=== PATIENT | female | born 1990 | race African-American/Black ===

== ENCOUNTER 2023-12-06 19:11 | Emergency (ER) | payer OTHER, SELFPAY ==
--- NOTE | ~2023-12-06 | CT_ITS ---
EXAMINATION: CT ABDOMEN AND PELVIS WITHOUT CONTRAST CLINICAL INFORMATION: Lower abdominal pain COMPARISON: None available. TECHNIQUE: Multidetector volumetric imaging was performed from the superior aspect of the liver through the pubic symphysis. Sagittal and coronal reformatted images were obtained on the technologist's workstation. This CT examination was performed using dose optimization techniques as appropriate, variously including the following: *Automated exposure control *Adjustment of mA and/or kV according to patient size (this includes techniques or standardized protocols for targeted exams where dose is matched to indication/reason for exam; i.e. extremities or head) *Use of iterative reconstruction technique DLP: 414 mGy-cm FINDINGS: LUNG BASES: The visualized lung bases are unremarkable. LIVER, GALLBLADDER, AND BILIARY TREE: Diffuse low-attenuation of the liver is present and is suspicious for hepatic steatosis. Focal hypodensity is present adjacent to the falciform ligament may represent focal fatty infiltration of the liver. The liver is normal in size and capsular contour. Vague dependent hyperdensity is present in the lumen of the gallbladder may represent partial visualization of biliary sludge or possible cholelithiasis. No pericholecystic fluid collections or definitive gallbladder wall thickening. PANCREAS: Unremarkable. SPLEEN: Unremarkable. ADRENAL GLANDS: Unremarkable. KIDNEYS AND URETERS: A single 1 mm calcification is present in the region of the left ureterovesicular junction. This finding may represent a ureteral calculus or a fortuitously positioned pelvic phlebolith. No left-sided hydronephrosis or perinephric inflammatory changes noted. Normal appearance of the kidneys. BLADDER: Unremarkable. GASTROINTESTINAL TRACT: Prominent diffuse submucosal fat within the colon and terminal ileum. Normal appendix. No intestinal dilatation. No free intraperitoneal fluid or gas collections. Normal appearance of the stomach and duodenum. ABDOMINAL WALL: No significant hernia is appreciated. LYMPH NODES: Normal. VASCULAR: Unremarkable. PELVIC VISCERA: Normal appearance of the uterus. The right ovary measures 3.0 cm x 3.0 cm x 2.5 cm. No left adnexal lesions. OSSEOUS STRUCTURES: No suspicious skeletal lesions. CT/CT abdomen pelvis wo IV con IMPRESSION: 1. Single 1 mm calcification in the region of the left ureterovesicular junction. This finding may represent a ureteral calculus or a fortuitously positioned pelvic phlebolith. No left-sided hydronephrosis or perinephric inflammatory changes. No additional urolithiasis. 2. Normal appendix. 3. Prominent diffuse submucosal fat within the colon and terminal ileum. This finding could represent the long-term sequela of inflammatory bowel disease (mural stratification and submucosal fat deposition as a sequela of chronic inflammatory bowel disease). No evidence of active colitis. 4. Hepatic steatosis. 5. Vague dependent hyperdensity within the lumen of the gallbladder which may represent biliary sludge or possible cholelithiasis. No CT evidence of acute cholecystitis. 6. Asymmetric prominence of the right ovary which measures up to 3 cm in maximum diameter, at the upper limits of normal size. If clinical concern is present regarding possible acute ovarian abnormality including ovarian torsion, consider further evaluation with pelvic ultrasonography. 7. Electronically signed by: Shahram Berrios MD 12/07/2023 06:31 AM EDT
[2023-12-06 19:29] VITALS: BP 113/92; PULSE 120; RESP 18; TEMP 36.7; O2SAT 98; BMI 25.8
--- NOTE | 2023-12-06 19:30 | ED.ABDPAIN ---
HPI - Abdominal Pain General Chief Complaint: Abdominal Pain Stated Complaint: abd pain,sore throat vomiting Time Seen by Provider: 12/07/23 04:51 Source: patient Mode of arrival: ambulatory Limitations: no limitations History of Present Illness ED Provider: DR. Pineda HPI narrative: 33-year-old female came in for evaluation of abdominal pain, nausea, vomiting, nonbloody watery diarrhea x1 week. No recent use of antibiotic, no sick contacts, no recent travel, no dysuria, no frequency urination. No history of intra-abdominal surgery. Related Data Previous Rx's ?Medication ?Instructions ?Recorded levofloxacin 500 mg tablet 500 mg PO DAILY #10 tabs 12/07/23 ondansetron 4 mg disintegrating 4 mg PO Q8-12H PRN nausea and 12/07/23 tablet vomiting #7 tabs Allergies Allergy/AdvReac Type Severity Reaction Status Date / Time No Known Allergies Allergy Verified 12/06/23 19:33 Review of Systems Review of Systems All other systems are reviewed and are negative Constitutional: Reports as per HPI and Reports no additional constitutional complaints Eyes: Reports as per HPI and Reports no additional eye complaints Reports system reviewed and no additional complaints, except as documented Cardiovascular: Reports as per HPI and Reports no additional cardiovascular complaints Respiratory: Reports as per HPI and Reports no additional respiratory complaints Gastrointestinal: Reports as per HPI and Reports no additional gastrointestinal complaints Genitourinary: Reports no additional female genitourinary complaints Musculoskeletal: Reports no additional musculoskeletal complaints Skin/Breast: Reports system reviewed and no additional complaints, except as docu Psychiatric: Reports no additional psychiatric complaints Endocrine: Reports no additional endocrine complaints Hematologic/Lymphatic: Reports no additional hematologic/lymphatic complaints Allergic/Immunologic: Reports no additional allergic/immunologic complaints Reports system reviewed and no additional complaints, except as documented and Reports Abnormal speech present [facility] Social History Social History Smoked in Last 30 Days: No Use of substances other than those prescribed or required for medical reasons: No Advance Directives: No Advance Directives Information Provided: Yes Do you have a plan to hurt others: No Plan Patient : No Physical Exam ED Vital Signs: Vital Signs - 24 hr 12/06/23 19:29 12/07/23 03:39 12/07/23 06:19 Temperature 98.1 F 98.6 F 97.4 F Pulse Rate 120 H 79 71 Respiratory Rate 18 16 16 Blood Pressure 113/92 H 133/85 106/70 Pulse Oximetry 98 99 99 Oxygen Delivery Method Room Air Room Air Room Air BMI result Body Mass Index 25.8 Vital signs have been reviewed and appear to be correct. Blood pressure elevated. Heart rate normal. Respiratory rate normal. Temperature normal. Oxygen saturation normal. Appearance: Alert. Oriented X3. No acute distress. Head: Normal external exam. Normocephalic. Atraumatic. No Friend signs noted. No raccoon eyes noted Eyes: PERRLA. EOMI. Conjunctiva and sclera normal. Eyelids normal. ENT: TM's Normal. Pharynx normal. Uvula midline. Moist mucous membranes. No trismus noted. No drooling noted. No muffled voice noted. Neck: Normal inspection. Neck supple. FROM. No adenopathy. Thyroid Normal. No meningeal signs. No neck mass noted. CVS: Normal heart rate and rhythm. Heart sound normal. No murmurs noted. Pulses normal throughout. Respiratory: No respiratory distress. Painless inspiration. Breath sounds normal. No wheezes/rales/rhonchi noted. Chest nontender. No accessory muscle usage noted or decreased air movement noted. Abdomen: Soft , lower abdominal tenderness no rebound tenderness, no guarding. Bowel sounds normal in all 4 quadrants. No distention noted. No organomegaly noted. No visible injury noted. Back: No CVA tenderness. Full range of motion noted. Skin: Skin warm and dry. Normal skin color. Normal skin turgor. No rashes/lesions/lacerations noted. Extremities: No lower extremity edema. Extremities exhibit normal range of motion. Extremities nontender. Neuro: Oriented X 3. Cranial nerve exam: II-XII are grossly intact No motor deficit. No sensory deficit. Reflexes normal. Course Course Course Narrative: This is a Rapid Medical Examination (RME) performed by Eusebia Richey PA-C in triage. Full HPI, ROS, assessment and treatment plan per primary provider in the Main ED. 33 yo female presents to the ER for evaluation of lower abdominal pain, nausea, vomiting and diarrhea for the last 1 week. she also has sore throat and chills. reports significant cramping. got her period today. pain is 10/10. no urinary symptoms. has not been able to tolerate any PO with multiple episodes of vomiting. tachycardic in triage. abd is soft with lower abdominal tenderness/suprapubic tenderness w/ guarding. no rigidity. Plan: labs, UA, imaging per primary provider Reevaluation(s) Reevaluation #1: 33-year-old female came in with nausea, vomiting, and diarrhea for week, no sick contacts no recent use of antibiotic unable to give a stool sample for further analysis, normal white count, CT is concern of colitis, questionable 1 mm left UVJ stone with no hydro which is not consistent with the clinical and physical exam. Will send the patient home on Zofran and levofloxacin for UTI / colitis and follow-up with GI. Time: 06:47 Medical Decision Making Differential Diagnosis Differential Diagnoses: The differential diagnosis associated with the presentation includes ( Colitis, pyelonephritis, UTI, obstructive kidney stone, electrolyte derangement, dehydration, appendicitis, severe anemia.) Admission/Observation Consideration of admission/observation: Escalation of care including admission/observation considered Lab Data MDM Lab Attestation statement: I reviewed the patient's lab results. 12/06/23 19:48 12/06/23 19:48 Labs: Lab Results 12/06/23 Range/Units 19:48 WBC 5.9 (4.8-10.8) X10*3/uL RBC 4.43 (4.20-5.50) X10*6/uL Hgb 12.2 (12.0-16.0) g/dl Hct 36.6 L (37.0-47.0) % MCV 82.6 (80.0-98.0) fL MCH 27.5 (27.0-33.0) pg MCHC 33.3 (31.0-35.0) g/dl RDW 21.7 H (11.0-16.0) % Plt Count 267 (160-400) X10*3/uL MPV 8.3 L (9.4-12.3) fL Immature Gran % (Auto) 0.2 (0.0-0.4) % Neut % (Auto) 74.3 H (45-73) % Lymph % (Auto) 16.2 L (20-40) % [place] % (Auto) 4.4 (2-11) % Eos % (Auto) 3.4 (0-4) % Baso % (Auto) 1.5 (0-2) % Lymph # (Auto) 1.0 L (1.2-4.9) X10*3/uL [place] # (Auto) 0.3 (0.1-1.2) X10*3/uL Eos # (Auto) 0.2 (0.0-0.4) X10*3/uL Baso # (Auto) 0.1 (0.0-0.2) X10*3/uL Abs Immat Gran (auto) 0.01 (0.00-0.03) X10*3/uL Absolute Neuts (auto) 4.4 (2.0-8.3) x10*3/uL Absolute Nucleated RBC 0.000 (0.0-0.012) X10*3/uL Nucleated RBC % (auto) 0.0 (0.0-0.2) /100WBC Sodium 140 (135-145) mmol/L Potassium 4.0 (3.3-5.1) mmol/L Chloride 106 (96-108) mmol/L Carbon Dioxide 21 L (22-29) mmol/L Anion Gap 17 (12-20) BUN 8 L (9-16) mg/dL Creatinine 0.96 (0.5-1.4) mg/dL Estim Creat Clear Calc 74.5 Estimated GFR > 60 Random Glucose 127 H (60-115) mg/dL Calcium 9.2 (8.4-10.2) mg/dL Magnesium 1.9 (1.6-2.6) mg/dL Total Bilirubin 0.6 (0.0-1.0) mg/dL Direct Bilirubin 0.3 (0.0-0.5) mg/dL AST 84 H (5-31) U/L ALT 44 H (0-31) U/L Alkaline Phosphatase 95 (39-117) U/L Total Protein 8.4 H (6.5-8.0) g/dL Albumin 3.9 (3.5-5.0) g/dL Lipase 16 (8-78) U/L Urine Color Yellow Urine Appearance Clear Urine pH 7.0 (5.0-9.0) Ur Specific [place] 1.025 (1.005-1.025) Urine Protein 30 (1+) H (Neg-Trace) mg/dL Urine Glucose (UA) 100 H (Negative) mg/dL Urine Ketones Negative (Negative) mg/dL Urine Blood Trace (Negative) Urine Nitrite Positive H (Negative) Ur Leukocyte Esterase Negative (Negative) Urine RBC 0-2 (0-2) /HPF Urine WBC 0-5 (0-5) /HPF Ur Squamous Epith Cells 0-2 (0-2) /HPF Urine Bacteria None Seen (None Seen) Hyaline Casts 0-2 (0-2) /LPF Urine Test NEGATIVE (NEGATIVE) S. pyogenes GrpA DENNY Negative (Negative) Independent Interpretation I performed an independent interpretation of an: CT Scan ( Abdomen pelvis:1. Single 1 mm calcification in the region of the left ureterovesicular junction. This finding may represent a ureteral calculus or a fortuitously positioned pelvic phlebolith. No left-sided hydronephrosis or perinephric inflammatory changes. No additional urolithiasis. 2. Nor) Radiology Impression Discussion of test interpretation with radiology: I have reviewed the radiologist's reading. Medications Administered Discontinued Medications Generic Name Dose Route Start Last Admin Trade Name Freq PRN Reason Stop Dose Admin Al Hydroxide/Mg Hydroxide 30 ml 12/07/23 04:57 12/07/23 05:22 Magnesium Hydrox/Alum Hydrox 30 Ml Oral.Susp PO 12/07/23 04:58 30 ml ONCE ONE Administration Famotidine 20 mg 12/07/23 04:57 12/07/23 05:22 Famotidine/Pf 20 Mg/2 Ml Vial IVPUSH 12/07/23 04:58 20 mg ONCE ONE Administration Sodium Chloride 1,000 mls @ 999 mls/hr 12/07/23 04:57 12/07/23 06:06 Ns IV 12/07/23 05:57 Infused .Q1H1M ONE Infusion Ketorolac Tromethamine 15 mg 12/07/23 04:57 12/07/23 05:22 Ketorolac Tromethamine 15 Mg/Ml Vial IVPUSH 12/07/23 04:58 15 mg ONCE ONE Administration Ondansetron HCl 4 mg 12/07/23 04:57 12/07/23 05:22 Ondansetron Hcl 4 Mg/2 Ml Vial IVPUSH 12/07/23 04:58 4 mg ONCE ONE Administration Discharge Plan Discharge Clinical Impression: Vomiting, UTI (urinary tract infection), Colitis Patient Disposition: Home, Self-Care Instructions: Urinary Tract Infection in Women (DC), Colitis (ED) Prescriptions: New ondansetron 4 mg tablet,disintegrating 4 mg PO Q8-12H PRN (Reason: nausea and vomiting) Qty: 7 0RF levofloxacin 500 mg tablet 500 mg PO DAILY Qty: 10 0RF Referrals: Mallory Lai MD [Physician] - Stand Alone Forms: Work/School Release Print Language: Singaporean
[2023-12-06 19:56] LABS: MANUAL DIFF FLAG NO
[2023-12-06 20:01] LABS: Basophils Absolute Auto 0.1 X10*3/uL (0.0-0.2); Basophils Percent Auto 1.5 % (0-2); Eosinophils Absolute Auto 0.2 X10*3/uL (0.0-0.4); Eosinophils Percent Auto 3.4 % (0-4); Hematocrit 36.6 % (37.0-47.0); Hemoglobin 12.2 g/dl (12.0-16.0); Imm Gran Abs Auto 0.01 X10*3/uL (0.00-0.03); Imm Gran Pct Auto 0.2 % (0.0-0.4); Lymphocytes Percent Auto 16.2 % (20-40); Mean Corpuscular HGB Conc 33.3 g/dl (31.0-35.0); Mean Corpuscular Hemoglobin 27.5 pg (27.0-33.0); Mean Corpuscular Volume 82.6 fL (80.0-98.0); Mean Platelet Volume 8.3 fL (9.4-12.3); Monocytes Absolute Auto 0.3 X10*3/uL (0.1-1.2); Monocytes Percent Auto 4.4 % (2-11); Neutrophils Absolute Auto 4.4 x10*3/uL (2.0-8.3); Neutrophils Percent Auto 74.3 % (45-73); Platelet Count 267 X10*3/uL (160-400); Red Blood Count 4.43 X10*6/uL (4.20-5.50); Red Cell Distribution Width 21.7 % (11.0-16.0); White Blood Count 5.9 X10*3/uL (4.8-10.8)
[2023-12-06 20:07] LABS: UPreg QC Valid YES; Urine Pregnancy NEGATIVE (NEGATIVE)
[2023-12-06 20:20] LABS: IDNOW Serial# 08D9AD1C; Strep A Nucleic Acid Negative (Negative)
[2023-12-06 20:36] LABS: Alanine Aminotransferase 44 U/L (0-31); Albumin Level 3.9 g/dL (3.5-5.0); Alkaline Phosphatase 95 U/L (39-117); Anion Gap 17 (12-20); Aspartate Amino Transferase 84 U/L (5-31); Bilirubin Direct 0.3 mg/dL (0.0-0.5); Bilirubin Total 0.6 mg/dL (0.0-1.0); Blood Urea Nitrogen 8 mg/dL (9-16); Calcium 9.2 mg/dL (8.4-10.2); Carbon Dioxide 21 mmol/L (22-29); Chloride 106 mmol/L (96-108); Creatinine Clr Calc Pharmacy 74.5; Estimated Glomerular Filt Rate > 60; Glucose Random 127 mg/dL (60-115); Lipase 16 U/L (8-78); Magnesium 1.9 mg/dL (1.6-2.6); Sodium 140 mmol/L (135-145); Total Protein 8.4 g/dL (6.5-8.0)
[2023-12-06 21:17] LABS: Appearance Urine Clear; Color Urine Yellow; Glucose Urine UA 100 mg/dL (Negative); Leukocyte Esterase Urine Negative (Negative); Nitrite Urine Positive (Negative); Specific Gravity - Urine 1.025 (1.005-1.025); UMIC TRIGGER UACC YES; Urine Blood Trace (Negative); Urine Ketones Negative (Negative); Urine Protein 30 (1+) mg/dL (Neg-Trace)
[2023-12-06 22:30] LABS: Bacteria Urine None Seen (None Seen); Hyaline Casts Urine 0-2 /LPF (0-2); RBC Urine 0-2 /HPF (0-2); Squamous Epithelial Cell Urine 0-2 /HPF (0-2); UACC Culture Trigger YES; WBC Urine 0-5 /HPF (0-5)
[2023-12-07 03:39] VITALS: BP 133/85; PULSE 79; RESP 16; TEMP 37; O2SAT 99
[2023-12-07] MEDS: 0.9 % Sodium Chloride 1,000 ML 999 ML IV (05:05)
[2023-12-07] MEDS: Ketorolac Tromethamine 15 MG/ML VIAL IVPUSH (05:22)
[2023-12-07] MEDS: Famotidine/PF 20 MG/2 ML VIAL IVPUSH (05:22)
[2023-12-07] MEDS: ondansetron HCL 4 MG/2 ML VIAL IVPUSH (05:22)
[2023-12-07] MEDS: Magnesium Hydrox/Alum Hydrox 30 ML ORAL.SUSP PO (05:22)
--- NOTE | 2023-12-07 06:07 | PC.NURSE ---
Patient presents to ED for evaluation of abdominal pain, nausea, vomiting, diarrhea x1 week. Patient changed into a hospital attire, 20 G IV line established in R AC, patient medicated per APR. CT scan completed, results pending.Call [email or web address] in reach, POC ongoing.
[2023-12-07 06:19] VITALS: BP 106/70; PULSE 71; RESP 16; TEMP 36.3; O2SAT 99
[2023-12-07 07:11] VITALS: BP 110/68; PULSE 74; RESP 16; TEMP 36.6; O2SAT 99
== END 2023-12-07 07:12 | disposition home or self-care (01) ==
PROVIDERS: Physician Assistant; Emergency Provider Emergency Medicine
DX: N39.0 Urinary tract infection, site not specified (principal); K52.9 Noninfective gastroenteritis and colitis, unspecified; R11.2 Nausea with vomiting, unspecified; Z11.52 Encounter for screening for COVID-19; Z79.899 Other long term (current) drug therapy
CPT/HCPCS: 36415; 74176; 80048; 80076; 81001; 81003; 81025; 83690; 83735; 85025; 87086; 87651; 96361; 96374; 96375; 99284; 99285; J1885; J2405

== ENCOUNTER 2024-04-06 16:32 | Emergency (ER) | payer OTHER, SELFPAY ==
--- NOTE | ~2024-04-06 | CT_ITS ---
CLINICAL HISTORY: Abdominal pain. Blood in stool. Colitis? CT abdomen and pelvis with contrast Comparison: 12/07/2023 Findings: Minimal posterior right lower lobe atelectasis. Left lung base clear. No acute bony abnormality. Hepatomegaly with fatty infiltration of the liver. Increased fatty infiltration along falciform ligament. No significant focal abnormality in liver or spleen. Pancreas and adrenal glands unremarkable. Gallbladder is within normal limits. No significant focal renal abnormalities. No renal stones or hydronephrosis. Abdominal aorta is normal in caliber. No free fluid or adenopathy in the pelvis. No diverticulitis. Appendix unremarkable. Probable small uterine fibroids. No adnexal abnormality. Impression: No acute process This document has been electronically signed by: Joseluis Alan MD on 04/06/2024 22:11:03
[2024-04-06 16:41] VITALS: BP 133/81; PULSE 108; RESP 20; TEMP 36.9; O2SAT 99; BMI 24.3
--- NOTE | 2024-04-06 16:44 | ED.NAVMDI ---
HPI - Nausea/Vomiting/Diarrhea General Chief complaint: Nausea/Vomiting/Diarrhea Stated complaint: vomiting ? fever Time Seen by Provider: 04/06/24 18:28 Source: patient Mode of arrival: ambulatory Limitations: no limitations History of Present Illness ED Provider: Bruce Love HPI Narrative: 33 yold female with no pmh presents to the ED for abdominal pain, nausea, vomitting, and diarrhea since last night. Patient presently states no URI SYmptoms. patient states no else at home sick Related Data Previous Rx's ?Medication ?Instructions ?Recorded levofloxacin 500 mg tablet 500 mg PO DAILY #10 tabs 12/07/23 ondansetron 4 mg disintegrating 4 mg PO Q8-12H PRN nausea and 12/07/23 tablet vomiting #7 tabs ondansetron 4 mg disintegrating 4 mg PO Q8H PRN nausea and 04/06/24 tablet vomiting #20 tabs Allergies Allergy/AdvReac Type Severity Reaction Status Date / Time Beef Containing Products Allergy Rash Verified 04/06/24 16:43 Review of Systems Review of Systems: abdominal pain, nausea, vomitting, darrhea Yes all other systems are reviewed and are negative Physical Exam Vital Signs: Vital Signs: Last Vital Signs Temp 98.8 F 04/06/24 23:18 Pulse 82 04/06/24 23:18 Resp 16 04/06/24 23:18 BP 109/55 L 04/06/24 23:18 Pulse Ox 100 04/06/24 23:18 O2 Del Method Room Air 04/06/24 23:18 BMI result Body Mass Index 24.3 Const: General: cooperative, healthy appearing, comfortable, no acute distress, well developed, alert and awake HEENT: Head: Yes normal to inspection, Yes No palpable skull fracture present, Yes normocephalic and Yes atraumatic Eyes: General: appearance normal, both eyes and all related structures Neck: Neck: Yes normal visual inspection, Yes full ROM, Yes no lymphadenopathy, Yes no meningeal signs, Yes trachea midline, Yes supple, No anterior neck swelling and No tender Chest: Chest palpation & inspection: normal inspection of the chest and normal palpation of entire chest wall Resp: Effort & Inspection: normal respiratory effort and able to speak in complete sentences Auscultation: clear to auscultation bilaterally Cardio: Jugular venous distension: no JVD Heart sounds: S1 normal heart sound present and S2 normal heart sound present GI: Inspection: Yes normal to inspection Palpation (GI): Soft to palpation, not firm, nontender, no guarding and not rigid : General: Yes no CVA tenderness Back/Spine/Pelvis: Back: no CVA tenderness and No back tenderness Skin: General skin exam: no rashes or lesions noted, elasticity normal and turgor normal Neuro: General: gait normal, tone normal, moves all extremities, Normal light touch and pain sensation, no meningeal signs, no focal motor deficits, CN's II-XI intact bilaterally and normal sensation to monofilament Extrem: General: Yes normal to inspection, Yes full ROM and Yes capillary refill normal Psych: Appearance: grossly normal, well kempt and not disheveled Course Course Course Narrative: This is a rapid medical exam performed by Reema Boston PA-C. Patient is a 33-year-old female who presents with the acute onset nausea vomiting diarrhea this morning. No abdominal pain, no known fever, no sick contacts with same symptoms. We will be screening a viral panel and basic labs. The patient is stable and can return to the waiting room pending her full medical assessment. Reevaluation(s) Reevaluation #1: Patient received in sign-out at change of shift pending urinalysis, urinalysis does not appear to show any acute infection. There is a high specific gravity likely due to her vomiting. She was treated with IV fluids. Time: 23:06 Medications Administered Discontinued Medications Generic Name Dose Route Start Last Admin Trade Name Freq PRN Reason Stop Dose Admin Sodium Chloride 1,000 mls @ 999 mls/hr 04/06/24 19:20 04/06/24 20:30 Ns IV 04/06/24 20:20 Infused .Q1H1M STA Infusion Iohexol 100 ml 04/06/24 21:34 04/06/24 21:34 Iohexol 350 Mg/Ml 100 Ml Infus..Btl IV 04/06/24 21:35 85 ml ONCE ONE Administration Ketorolac Tromethamine 30 mg 04/06/24 19:36 04/06/24 19:47 Ketorolac Tromethamine 30 Mg/Ml Vial IVPUSH 04/06/24 19:37 30 mg ONCE ONE Administration Morphine Sulfate 2 mg 04/06/24 20:58 04/06/24 21:10 Morphine Sulfate 2 Mg/Ml Cartridge IVPUSH 04/06/24 20:59 2 mg ONCE ONE Administration Protocol Ondansetron HCl 4 mg 04/06/24 20:17 04/06/24 20:24 Ondansetron Hcl 4 Mg/2 Ml Vial IVPUSH 04/06/24 20:18 4 mg ONCE ONE Administration Medical Decision Making Medical Decision Making [facility] Narrative: 33-year-old female presents to the ED for abdominal pain diarrhea nausea vomiting. Labs were at baseline not remarkable. Patient is sent for CT scan IV fluids ordered 9:20pm: CT scan pending. Patient received fluids and pain medication. Case signed out to CHELSI QUIROS Differential Diagnosis Differential Diagnoses: The differential diagnosis associated with the presentation includes (Colitis, appendicitis, UTI,) Lab Data [facility] Lab Attestation statement: I reviewed the patient's lab results. 04/06/24 16:55 04/06/24 16:55 Labs: Lab Results 04/06/24 04/06/24 04/06/24 Range/Units 16:55 21:14 22:30 WBC 5.9 (4.8-10.8) X10*3/uL RBC 4.15 L (4.20-5.50) X10*6/uL Hgb 10.8 L (12.0-16.0) g/dl Hct 33.6 L (37.0-47.0) % MCV 81.0 (80.0-98.0) fL MCH 26.0 L (27.0-33.0) pg MCHC 32.1 (31.0-35.0) g/dl RDW 15.8 (11.0-16.0) % Plt Count 406 H D (160-400) X10*3/uL MPV 10.1 (9.4-12.3) fL Immature Gran % (Auto) 0.3 (0.0-0.4) % Neut % (Auto) 75.7 H (45-73) % Lymph % (Auto) 16.0 L (20-40) % [place] % (Auto) 4.8 (2-11) % Eos % (Auto) 2.0 (0-4) % Baso % (Auto) 1.2 (0-2) % Lymph # (Auto) 0.9 L (1.2-4.9) X10*3/uL [place] # (Auto) 0.3 (0.1-1.2) X10*3/uL Eos # (Auto) 0.1 (0.0-0.4) X10*3/uL Baso # (Auto) 0.1 (0.0-0.2) X10*3/uL Abs Immat Gran (auto) 0.02 (0.00-0.03) X10*3/uL Absolute Neuts (auto) 4.5 (2.0-8.3) x10*3/uL Absolute Nucleated RBC 0.000 (0.0-0.012) X10*3/uL Nucleated RBC % (auto) 0.0 (0.0-0.2) /100WBC Sodium 141 (135-145) mmol/L Potassium 4.1 (3.3-5.1) mmol/L Chloride 110 H (96-108) mmol/L Carbon Dioxide 19 L (22-29) mmol/L Anion Gap 16 (12-20) BUN 11 (9-16) mg/dL Creatinine 0.79 (0.5-1.4) mg/dL Estim Creat Clear Calc 88.1 Estimated GFR > 60 Random Glucose 120 H (60-115) mg/dL Calcium 8.7 (8.4-10.2) mg/dL Magnesium 2.2 (1.6-2.6) mg/dL Total Bilirubin 0.5 (0.0-1.0) mg/dL AST 39 H (5-31) U/L ALT 21 (0-31) U/L Alkaline Phosphatase 92 (39-117) U/L Total Protein 9.2 H (6.5-8.0) g/dL Albumin 4.5 (3.5-5.0) g/dL Beta HCG, Quant < 2 mIU/mL Urine Color Yellow Urine Appearance Clear Urine pH 6.5 (5.0-9.0) Ur Specific [place] >= 1.030 H (1.005-1.025) Urine Protein Trace (Neg-Trace) mg/dL Urine Glucose (UA) Negative (Negative) mg/dL Urine Ketones Negative (Negative) mg/dL Urine Blood Negative (Negative) Urine Nitrite Negative (Negative) Ur Leukocyte Esterase Negative (Negative) Influenza Type A (PCR) NEGATIVE (Negative) Influenza Type B (PCR) NEGATIVE (Negative) RSV RNA Qual (PCR) NEGATIVE (Negative) SARS-CoV-2 RNA (RT-PCR) NEGATIVE (Negative) S. pyogenes GrpA DENNY Negative (Negative) Independent Historian Clinical information obtained from an independent historian. History obtained from or confirmed by: Other (patient) Discharge Plan Discharge Clinical Impression: Abdominal pain Patient Disposition: Home, Self-Care Instructions: Abdominal Pain (ED) Additional Instructions: Your symptoms are likely related to a virus. Hydrate well. Take Zofran as needed for nausea and vomiting Prescriptions: New ondansetron 4 mg tablet,disintegrating 4 mg PO Q8H PRN (Reason: nausea and vomiting) Qty: 20 0RF No Action ondansetron 4 mg tablet,disintegrating 4 mg PO Q8-12H PRN (Reason: nausea and vomiting) Qty: 7 0RF levofloxacin 500 mg tablet 500 mg PO DAILY Qty: 10 0RF Stand Alone Forms: Work/School Release Interventions: ED Discharge Assessment Last Done: 04/06/24 23:18 Discharge Date/Time: 04/06/24 23:18 Print Language: Frisian
[2024-04-06 17:01] LABS: Basophils Absolute Auto 0.1 X10*3/uL (0.0-0.2); Basophils Percent Auto 1.2 % (0-2); Eosinophils Absolute Auto 0.1 X10*3/uL (0.0-0.4); Hematocrit 33.6 % (37.0-47.0); Hemoglobin 10.8 g/dl (12.0-16.0); Imm Gran Abs Auto 0.02 X10*3/uL (0.00-0.03); Imm Gran Pct Auto 0.3 % (0.0-0.4); Lymphocytes Absolute Auto 0.9 X10*3/uL (1.2-4.9); MANUAL DIFF FLAG NO; Mean Corpuscular HGB Conc 32.1 g/dl (31.0-35.0); Mean Platelet Volume 10.1 fL (9.4-12.3); Monocytes Absolute Auto 0.3 X10*3/uL (0.1-1.2); Monocytes Percent Auto 4.8 % (2-11); Neutrophils Absolute Auto 4.5 x10*3/uL (2.0-8.3); Neutrophils Percent Auto 75.7 % (45-73); Platelet Count 406 X10*3/uL (160-400); Red Blood Count 4.15 X10*6/uL (4.20-5.50); Red Cell Distribution Width 15.8 % (11.0-16.0); White Blood Count 5.9 X10*3/uL (4.8-10.8)
[2024-04-06 17:16] LABS: Alanine Aminotransferase 21 U/L (0-31); Albumin Level 4.5 g/dL (3.5-5.0); Alkaline Phosphatase 92 U/L (39-117); Anion Gap 16 (12-20); Aspartate Amino Transferase 39 U/L (5-31); Bilirubin Total 0.5 mg/dL (0.0-1.0); Blood Urea Nitrogen 11 mg/dL (9-16); Calcium 8.7 mg/dL (8.4-10.2); Carbon Dioxide 19 mmol/L (22-29); Chloride 110 mmol/L (96-108); Creatinine Clr Calc Pharmacy 88.1; Estimated Glomerular Filt Rate > 60; Glucose Random 120 mg/dL (60-115); Magnesium 2.2 mg/dL (1.6-2.6); Potassium 4.1 mmol/L (3.3-5.1); Sodium 141 mmol/L (135-145); Total Protein 9.2 g/dL (6.5-8.0)
[2024-04-06 17:24] LABS: HCG Quantitative < 2 mIU/mL
[2024-04-06 17:39] LABS: Influenza A PCR NEGATIVE (Negative); Influenza B PCR NEGATIVE (Negative); Resp Syncy Virus RNA Qual PCR NEGATIVE (Negative); SARS COV2 PCR INHOUSE NEGATIVE (Negative)
[2024-04-06 18:31] VITALS: BP 116/68; PULSE 105; RESP 16; TEMP 36.9; O2SAT 99
[2024-04-06] MEDS: 0.9 % Sodium Chloride 1,000 ML 999 ML IV (19:29)
[2024-04-06] MEDS: Ketorolac Tromethamine 30 MG/ML VIAL IVPUSH (19:47)
[2024-04-06 20:06] VITALS: BP 102/61; PULSE 88; RESP 16; TEMP 37.2; O2SAT 100
[2024-04-06] MEDS: ondansetron HCL 4 MG/2 ML VIAL IVPUSH (20:24)
[2024-04-06] MEDS: Morphine Sulfate 2 MG/ML CARTRIDGE IVPUSH (21:10)
[2024-04-06] MEDS: iohexoL 350 MG/ML 100 ML INFUS..BTL IV (21:34)
[2024-04-06 21:35] LABS: IDNOW Serial# 6674DD1D; Strep A Nucleic Acid Negative (Negative)
[2024-04-06 22:18] VITALS: BP 109/55; PULSE 82; RESP 16; TEMP 37.1; O2SAT 100
[2024-04-06 22:35] LABS: Appearance Urine Clear; Color Urine Yellow; Glucose Urine UA Negative (Negative); Leukocyte Esterase Urine Negative (Negative); Nitrite Urine Negative (Negative); PH 6.5 (5.0-9.0); Specific Gravity - Urine >= 1.030 (1.005-1.025); Urine Blood Negative (Negative); Urine Ketones Negative (Negative); Urine Protein Trace mg/dL (Neg-Trace)
[2024-04-06 23:18] VITALS: BP 109/55; PULSE 82; RESP 16; TEMP 37.1; O2SAT 100
== END 2024-04-06 23:18 | disposition home or self-care (01) ==
PROVIDERS: Physician Assistant; Physician Assistant Medical; Emergency Provider Emergency Medicine
DX: R11.2 Nausea with vomiting, unspecified (principal); R10.2 Pelvic and perineal pain; Z79.899 Other long term (current) drug therapy; Z03.818 Encounter for observation for suspected exposure to other biological agents ruled out
CPT/HCPCS: 0241U; 36415; 74177; 80053; 81003; 83735; 84702; 85025; 87651; 96361; 96374; 96375; 99284; J1885; J2270; J2405; Q9967

== ENCOUNTER → 2024-04-06 19:20 | Outpatient (BNV) | payer OTHER, SELFPAY | PROVIDERS: Emergency Provider Emergency Medicine; Visit Provider Radiology Diagnostic Radiology | DX: R16.0 Hepatomegaly, not elsewhere classified (principal); K76.0 Fatty (change of) liver, not elsewhere classified | CPT/HCPCS: 74177 ==

== ENCOUNTER 2024-05-07 14:05 | Emergency (ER) | payer OTHER, SELFPAY ==
--- NOTE | ~2024-05-07 | CT_ITS ---
CLINICAL HISTORY: headaches, mental pain CT head without contrast Comparison: None Findings: No intra-axial mass, midline shift, hydrocephalus, or acute hemorrhage. No significant atrophy-like change or white matter disease. The visualized paranasal sinuses and mastoid air cells are normal. The orbits are unremarkable. There is no acute fracture. IMPRESSION: 1. No acute intracranial findings. This document has been electronically signed by: Antoinette Copeland MD on 05/07/2024 18:07:18
--- NOTE | ~2024-05-07 | CT_ITS ---
CLINICAL HISTORY: abd pain, int diarrhea constipation CT abdomen and pelvis with contrast Comparison: CT/SR - CT ABDOMEN PELVIS W IV CON - 04/06/24 21:16 EST Findings: No consolidation or effusion. Unremarkable gallbladder and solid organs. No urolithiasis. Mild thickening of the colon wall, predominating within the mid and distal colon. No bowel dilatation. No pneumatosis or portal venous gas. Multiple small uterine fibroids. Otherwise unremarkable pelvic contents. Normal appendix. The bones are intact. IMPRESSION: There is a mild degree of colitis. This document has been electronically signed by: Antoinette Copeland MD on 05/07/2024 17:57:34
[2024-05-07 14:24] VITALS: BP 111/72; PULSE 109; RESP 20; TEMP 36.2; O2SAT 98; BMI 25.8
--- NOTE | 2024-05-07 14:37 | ED_ITS ---
HPI - General Adult General Chief complaint: Abdominal Pain Stated complaint: full body ache Time Seen by Provider: 05/07/24 14:55 Source: patient and family (son) Mode of arrival: ambulatory Limitations: no limitations History of Present Illness ED Provider: TORRI CHARLTON PA-C HPI narrative: 33 year old female with no significant pmhx presents to the ED today with multiple concerns. She endorses intermittent constipation and diarrhea x3-4 days. Associated diffuse abdominal discomfort. She denies any blood in her stools. She tells me she has pain all over her body. Admits to mental pain . She tells me this is due to her current life situation. She states she has no one and that it is just her and her 10 year old son, who is at bedside with her. I was informed by RN that patient began striking herself in the head earlier when asked about her mental pain. She states she is angry, depressed, and wishes to harm herself however I could never do that to my son . Denies plan. Denies HI. When asked about auditory hallucinations she states what kind of voices and does not elaborate. Denies VH/TH. She reports consuming two buzz balls of liquor today. Denies regular etoh consumption. Denies hx of withdrawal seizures or DT. Denies ilicit substance use. Denies any known mental illnesses. denies any medical conditions. Denies fever, chills, sore throat, chest pain, N/V, flank pain, urinary sx, vaginal discharge. Her 10 yo son at bedside appears to be assisting with history. She drove herself and her son to the ED today. Concern for child endangerment as patient appears intoxicated and admits to consuming ETOH prior to presentation. dat instructor and bedside RN aware - contacting child services. Patient did give us the contact information for her father and tells us she would like her father to come cotton picker her son. Related Data Previous Rx's ?Medication ?Instructions ?Recorded levofloxacin 500 mg tablet 500 mg PO DAILY #10 tabs 12/07/23 ondansetron 4 mg disintegrating 4 mg PO Q8-12H PRN nausea and 12/07/23 tablet vomiting #7 tabs ondansetron 4 mg disintegrating 4 mg PO Q8H PRN nausea and 04/06/24 tablet vomiting #20 tabs Allergies Allergy/AdvReac Type Severity Reaction Status Date / Time Beef Containing Products Allergy Rash Verified 05/07/24 14:28 Review of Systems 2 Review of Systems: Yes all other systems are reviewed and are negative [facility] Past Medical History Attestation statement: The following information was validated with the patient. Source: old records reviewed and nursing notes reviewed Social History Social History Alcohol intake: current Alcohol intake frequency: holidays/special occasions only Alcohol type: hard liquor Physical Exam ED Vital Signs: Vital Signs - 24 hr 05/07/24 21:27 05/08/24 01:37 05/08/24 12:46 Temperature 97.9 F 99.1 F 98.1 F Pulse Rate 74 96 90 Respiratory Rate 15 16 18 Blood Pressure 108/89 102/67 117/70 Pulse Oximetry 97 98 99 Oxygen Delivery Method Room Air Room Air Room Air 05/08/24 14:48 Temperature 98.1 F Pulse Rate 90 Respiratory Rate 18 Blood Pressure 117/70 Pulse Oximetry 99 Oxygen Delivery Method Room Air BMI result Body Mass Index 25.8 tachycardic, vitals otherwise wnl General: anxious, crying, appears in emotional distress, intoxicated Skin: Warm, dry, intact. No rashes or lesions. Head: Normocephalic, atraumatic. EENT: Hearing is intact b/l. Conjunctiva clear. PERRLA. EOM intact. Moist mucous membranes.? Neck: Supple without LAD Cardiac: Chest wall symmetric. RRR. Lungs: Normal respiratory effort without accessory muscle use. CTA bilaterally. Abdomen: Soft, non-tender, non-distended. No rebound tenderness or guarding. Positive BS x4. manjinder not performed. Back: No midline spinous or paraspinal tenderness. No step off deformity. Ext: Upper and lower extremities atraumatic, without tenderness, deformity, swelling or erythema Neuro: AOx3. Normal speech. CN 2-12 grossly intact. Strength 5/5 intact throughout. Sensation intact to light touch. NV intact distally. Ambulating with steady gait. Psych: tearful, labile affect. Responding to questions Course Course Course Narrative: RME: 33-year-old male complaining of generalized body aches headache abdominal pain also feeling emotional crying with vague SI. Patient has drank 2 nips of bus ball. Labs care team consult placed Reevaluation(s) Reevaluation #1: cbc showing leukopenia. microcytic anemia, h&h down trending from priors. no concern for acute bleed. will add iron studies. chemistry without acute electrolyte abnormality requiring intervention. negative covid, flu, rsv. ethanol 381. ct head unremarkable. ct a/p showing mild colitis. will treat w/ augmentin. > UA, UDS pending > care team pending. placed in physician obs. > after [facility] evaluation, patient's son placed in the care of his grandfather Medications Administered Discontinued Medications Generic Name Dose Route Start Last Admin Trade Name Freq PRN Reason Stop Dose Admin Amoxicillin/Clavulanate Potassium 500 mg 05/07/24 21:14 05/07/24 21:37 Amoxicillin/Potassium Clav 500 Mg Tablet PO 05/07/24 21:15 500 mg ONCE ONE Administration Amoxicillin/Clavulanate Potassium 875 mg 05/08/24 09:20 05/08/24 09:46 Amoxicillin/Potassium Clav 875 Mg Tablet PO 875 mg BID ANNMARIE Administration Iohexol 100 ml 05/07/24 16:41 05/07/24 16:41 Iohexol 350 Mg/Ml 100 Ml Infus..Btl IV 05/07/24 16:42 85 ml ONCE ONE Administration Lorazepam 1 mg 05/07/24 15:31 05/07/24 15:51 Lorazepam 1 Mg Tablet PO 05/07/24 15:32 1 mg ONCE ONE Administration Ondansetron HCl 4 mg 05/07/24 15:22 05/07/24 15:51 Ondansetron Odt 4 Mg Tab.Rapdis TRANSLINGU 05/07/24 15:23 4 mg ONCE ONE Administration Ondansetron HCl 4 mg 05/08/24 12:50 05/08/24 14:09 Ondansetron Odt 4 Mg Tab.Rapdis TRANSLINGU 05/08/24 12:51 4 mg ONCE ONE Administration Medical Decision Making Medical Decision Making MDM Narrative: 33 year old female with no significant pmhx presents to the ED today with multiple concerns. patient is tachycardic to 109 however she is in emotional distress. Vitals are otherwise normal. She was anxious appearing, tearful, labile affect. Her exam is nonfocal. No trauma noted to her head. PERRLA. abd soft, non-tender, non-distended. No rebound tenderness or guarding. Positive BS x4. Differential diagnosis includes colitis, diverticulosis, diverticulitis, IBS, viral syndrome, anemia, electrolyte abnormality, depression, psychosis, SI, intracranial mass, polysubstance use, alcohol intoxication v withdrawal. low suspicionf ro encephalopathy Plan for labs, UA, urine drug screen, urine , ethanol, viral swabs +/- imaging. Patient medicated with Ativan on arrival due to emotional distress - requesting to be medicated. Zofran provided for nausea. Differential Diagnosis Differential Diagnoses: The differential diagnosis associated with the presentation includes as above. Admission/Observation Consideration of admission/observation: Escalation of care including admission/observation considered Lab Data MDM Lab Attestation statement: I reviewed the patient's lab results. as above. 05/07/24 15:25 05/07/24 15:25 Labs: Lab Results 05/07/24 05/07/24 Range/Units 15:25 21:31 WBC 3.9 L (4.8-10.8) X10*3/uL RBC 4.11 L (4.20-5.50) X10*6/uL Hgb 9.8 L (12.0-16.0) g/dl Hct 31.1 L (37.0-47.0) % MCV 75.7 L (80.0-98.0) fL MCH 23.8 L (27.0-33.0) pg MCHC 31.5 (31.0-35.0) g/dl RDW 17.8 H (11.0-16.0) % Plt Count 242 D (160-400) X10*3/uL MPV 8.6 L (9.4-12.3) fL Immature Gran % (Auto) 0.3 (0.0-0.4) % Neut % (Auto) 35.8 L (45-73) % Lymph % (Auto) 46.2 H (20-40) % [place] % (Auto) 6.2 (2-11) % Eos % (Auto) 10.0 H (0-4) % Baso % (Auto) 1.5 (0-2) % Lymph # (Auto) 1.8 (1.2-4.9) X10*3/uL [place] # (Auto) 0.2 (0.1-1.2) X10*3/uL Eos # (Auto) 0.4 (0.0-0.4) X10*3/uL Baso # (Auto) 0.1 (0.0-0.2) X10*3/uL Abs Immat Gran (auto) 0.01 (0.00-0.03) X10*3/uL Absolute Neuts (auto) 1.4 L (2.0-8.3) x10*3/uL Absolute Nucleated RBC 0.000 (0.0-0.012) X10*3/uL Nucleated RBC % (auto) 0.0 (0.0-0.2) /100WBC Sodium 145 (135-145) mmol/L Potassium 3.5 (3.3-5.1) mmol/L Chloride 114 H (96-108) mmol/L Carbon Dioxide 18 L (22-29) mmol/L Anion Gap 17 (12-20) BUN 9 (9-16) mg/dL Creatinine 0.82 (0.5-1.4) mg/dL Estim Creat Clear Calc 87.2 Estimated GFR > 60 Random Glucose 104 (60-115) mg/dL Calcium 8.5 (8.4-10.2) mg/dL Iron 27 L (30-160) mcg/dL TIBC 392 (228-428) mcg/dL % Saturation 7 L (15-50) % Unsat Iron Binding 365 ug/dL Total Bilirubin 0.3 (0.0-1.0) mg/dL AST 20 (5-31) U/L ALT 12 (0-31) U/L Alkaline Phosphatase 70 (39-117) U/L Total Protein 8.4 H (6.5-8.0) g/dL Albumin 3.9 (3.5-5.0) g/dL Beta HCG, Quant < 2 mIU/mL Urine Color Yellow Urine Appearance Clear Urine pH 6.0 (5.0-9.0) Ur Specific [place] >= 1.030 H (1.005-1.025) Urine Protein Trace (Neg-Trace) mg/dL Urine Glucose (UA) Negative (Negative) mg/dL Urine Ketones Negative (Negative) mg/dL Urine Blood Negative (Negative) Urine Nitrite Negative (Negative) Ur Leukocyte Esterase Negative (Negative) Urine Test NEGATIVE (NEGATIVE) Urine Opiates Screen Not Detected (Not Detect) Ur Buprenorphine Scrn Not Detected (Not Detect) ng/mL Ur Oxycodone Screen Not Detected (Not Detect) ng/mL Urine Methadone Screen Not Detected (Not Detect) ng/mL Urine Fentanyl Screen Not Detected (Not Detect) Ur Barbiturates Screen Not Detected (Not Detect) Ur Phencyclidine Scrn Not Detected (Not Detect) Ur Amphetamines Screen Not Detected (Not Detect) U Benzodiazepines Scrn Not Detected (Not Detect) Urine Cocaine Screen Not Detected (Not Detect) U Marijuana (THC) Screen Not Detected (Not Detect) Ethyl Alcohol 381 H* mg/dL Influenza Type A (PCR) NEGATIVE (Negative) Influenza Type B (PCR) NEGATIVE (Negative) RSV RNA Qual (PCR) NEGATIVE (Negative) SARS-CoV-2 RNA (RT-PCR) NEGATIVE (Negative) Independent Interpretation I performed an independent interpretation of an: CT Scan Interpretation: CT head/brain without bleed or mass CT a/p without obstruction Radiology Impression Discussion of test interpretation with radiology: I have reviewed the radiologist's reading. Radiologist Impression: Procedure(s): CT head/brain wo IV con Accession Number(s): [id number] cc: Physician,Unknown ; Torri Charlton~ Report Number: [id number]: Total DLP = 609.00 mGy-cm CLINICAL HISTORY: headaches, mental pain CT head without contrast Comparison: None Findings: No intra-axial mass, midline shift, hydrocephalus, or acute hemorrhage. No significant atrophy-like change or white matter disease. The visualized paranasal sinuses and mastoid air cells are normal. The orbits are unremarkable. There is no acute fracture. IMPRESSION: 1. No acute intracranial findings. This document has been electronically signed by: Antoinette Copeland MD on 05/07/2024 18:07:18 Procedure(s): CT abdomen pelvis w IV con Accession Number(s): [id number] cc: Physician,Unknown ; Torri Charlton~ Report Number: [id number]: Total DLP = 839.00 mGy-cm CLINICAL HISTORY: abd pain, int diarrhea constipation CT abdomen and pelvis with contrast Comparison: CT/SR - CT ABDOMEN PELVIS W IV CON - 04/06/24 21:16 EST Findings: No consolidation or effusion. Unremarkable gallbladder and solid organs. No urolithiasis. Mild thickening of the colon wall, predominating within the mid and distal colon. No bowel dilatation. No pneumatosis or portal venous gas. Multiple small uterine fibroids. Otherwise unremarkable pelvic contents. Normal appendix. The bones are intact. IMPRESSION: There is a mild degree of colitis. This document has been electronically signed by: Antoinette Copeland MD on 05/07/2024 17:57:34 External Record Review External record reviewed: Inpatient record Prescription Management I considered prescription management with: Pain Medication and Antibiotic Social Determinants Patient?s care significantly limited by Social Determinants of Health including: Other Social Determinant of Health Critical Care Time Critical Care Time Critical Care Time: No Discharge Plan Discharge Clinical Impression: Alcohol intoxication, Colitis Patient Disposition: Home, Self-Care Instructions: Abuse of Alcohol (DC), At-Risk Alcohol Use (ED) Additional Instructions: You were seen today in the emergency department for alcohol intoxication and concerns for stating these sure suicidal. Once you were sober you no longer had these feelings please call follow up with your doctor. You have any other concerns please return to the ER Prescriptions: No Action ondansetron 4 mg tablet,disintegrating 4 mg PO Q8H PRN (Reason: nausea and vomiting) Qty: 20 0RF ondansetron 4 mg tablet,disintegrating 4 mg PO Q8-12H PRN (Reason: nausea and vomiting) Qty: 7 0RF levofloxacin 500 mg tablet 500 mg PO DAILY Qty: 10 0RF Interventions: ED Discharge Assessment Last Done: 05/08/24 14:48 Discharge Date/Time: 05/08/24 14:49 Print Language: Malay ED Observation ED Observation Discharge Plan Comment: Patient pending care team seen and obviously intoxicated. Patient denies SI at this time. Safe for discharge. Father happy to take care of her. Interested in outpatient therapy and given referrals
--- NOTE | 2024-05-07 15:16 | MHC.EDTECH ---
pt changed over into hospital safety attire with security at bedside. pt tolerated and cooperated well. belongings list created and bags placed in sudha port closet on shelf one. sitter at bedside obtaining labs and educated on the need of a urine. pt visualized to be throwing up at this time and RN aware, provider to be notified. pt 10 year old son was brought to cafeteria for some snacks by security, now remains at bedside. investment recovery technician at bedside as well for consult as per request for detox.
[2024-05-07 15:29] LABS: MANUAL DIFF FLAG NO
[2024-05-07 15:31] LABS: Basophils Absolute Auto 0.1 X10*3/uL (0.0-0.2); Basophils Percent Auto 1.5 % (0-2); Eosinophils Absolute Auto 0.4 X10*3/uL (0.0-0.4); Hematocrit 31.1 % (37.0-47.0); Hemoglobin 9.8 g/dl (12.0-16.0); Imm Gran Abs Auto 0.01 X10*3/uL (0.00-0.03); Imm Gran Pct Auto 0.3 % (0.0-0.4); Lymphocytes Absolute Auto 1.8 X10*3/uL (1.2-4.9); Lymphocytes Percent Auto 46.2 % (20-40); Mean Corpuscular HGB Conc 31.5 g/dl (31.0-35.0); Mean Corpuscular Hemoglobin 23.8 pg (27.0-33.0); Mean Corpuscular Volume 75.7 fL (80.0-98.0); Mean Platelet Volume 8.6 fL (9.4-12.3); Monocytes Absolute Auto 0.2 X10*3/uL (0.1-1.2); Monocytes Percent Auto 6.2 % (2-11); Neutrophils Absolute Auto 1.4 x10*3/uL (2.0-8.3); Neutrophils Percent Auto 35.8 % (45-73); Platelet Count 242 X10*3/uL (160-400); Red Blood Count 4.11 X10*6/uL (4.20-5.50); Red Cell Distribution Width 17.8 % (11.0-16.0); White Blood Count 3.9 X10*3/uL (4.8-10.8)
--- NOTE | 2024-05-07 15:31 | PC.NURSE ---
Pt comes to ED today from waiting area. Pt is visibly emotionally upset; tearful and agitated. Pt is observed punching both side of her head. Initial exam difficult d/t Pts level of emotional distress. Pt does not respond to all questions put forth and often sobs uncontrollably. Pt is able to report that she had emotional/MH pain and that she is going through a lot. She states she has thoughts of hurting herself but has no pain. Pt endorses ETOH use earlier today, she reports drinking two buzz balls prior to her arrival to ED. Pt is accompanied by her young son today. sand miller aware and plans to notify the appropriate authorities. machine preservative filler at bedside. Pt changed over into hospital attire by security. Care Team to see Pt.
[2024-05-07 15:43] LABS: Alanine Aminotransferase 12 U/L (0-31); Albumin Level 3.9 g/dL (3.5-5.0); Alkaline Phosphatase 70 U/L (39-117); Anion Gap 17 (12-20); Aspartate Amino Transferase 20 U/L (5-31); Bilirubin Total 0.3 mg/dL (0.0-1.0); Blood Urea Nitrogen 9 mg/dL (9-16); Calcium 8.5 mg/dL (8.4-10.2); Carbon Dioxide 18 mmol/L (22-29); Chloride 114 mmol/L (96-108); Creatinine Clr Calc Pharmacy 87.2; Estimated Glomerular Filt Rate > 60; Ethanol 381 mg/dL; Glucose Random 104 mg/dL (60-115); Potassium 3.5 mmol/L (3.3-5.1); Sodium 145 mmol/L (135-145); Total Protein 8.4 g/dL (6.5-8.0)
[2024-05-07 15:51] LABS: HCG Quantitative < 2 mIU/mL
[2024-05-07] MEDS: Ondansetron ODT 4 MG TAB.RAPDIS TRANSLINGU (15:51)
[2024-05-07] MEDS: LORazepam 1 MG TABLET PO (15:51)
[2024-05-07 16:08] LABS: Influenza A PCR NEGATIVE (Negative); Influenza B PCR NEGATIVE (Negative); Resp Syncy Virus RNA Qual PCR NEGATIVE (Negative); SARS COV2 PCR INHOUSE NEGATIVE (Negative)
[2024-05-07] MEDS: iohexoL 350 MG/ML 100 ML INFUS..BTL IV (16:41)
[2024-05-07 17:01] VITALS: BP 94/63; PULSE 72; RESP 16; TEMP 37.1; O2SAT 97
--- NOTE | 2024-05-07 17:44 | PC.NURSE ---
records and information manager contacts DCF re: Pts son. DCF staff on site for interviews with Pt and son. Dispo pending.
--- NOTE | 2024-05-07 19:12 | PC.NURSE ---
assumed care of patient at this time. report received from Miriam MOONEY. 1:1 sitter at bedside.
--- NOTE | 2024-05-07 19:50 | PC.NURSE ---
This RN/ Sergio contacted DCF for an emergency response. As on arrival to ED triage pts 10 year old son was present, the pt was intoxicated, having erratic behavior with multiple outburst in triage. Pt had multiple complaints, was unable to give a clear story of situation. At this time most of the information was being given by the child present, all details about mother, including her alcohol usage was provided by him. DCF called, verbal report given by Sergio. Child was very calm and cooperative, security took child to cafe to get some food, activities provided for child while awaiting DCF. Upon DCF arrival they were able to get contact information for the patients father (mami grandfather), he was contacted and arrived at the hospital it was decided that he would take the child, DCF followed for house inspection after leaving ED. Pt remains unfazed at this time. Written report completed and faxed by this RN to office.
[2024-05-07 21:27] VITALS: BP 108/89; PULSE 74; RESP 15; TEMP 36.6; O2SAT 97
[2024-05-07] MEDS: Amoxicillin/Potassium Clav 500 MG TABLET PO (21:37)
[2024-05-07 21:40] LABS: Appearance Urine Clear; Color Urine Yellow; Glucose Urine UA Negative (Negative); Leukocyte Esterase Urine Negative (Negative); Nitrite Urine Negative (Negative); Specific Gravity - Urine >= 1.030 (1.005-1.025); Urine Blood Negative (Negative); Urine Ketones Negative (Negative); Urine Protein Trace mg/dL (Neg-Trace)
[2024-05-07 21:41] LABS: UPreg QC Valid YES; Urine Pregnancy NEGATIVE (NEGATIVE)
[2024-05-07 21:49] LABS: Iron 27 mcg/dL (30-160); Percent Iron Saturation 7 % (15-50); Total Iron Binding Capacity 392 mcg/dL (228-428); Unsaturated Iron Binding 365 ug/dL
[2024-05-07 21:50] LABS: Amphetamine Screen Urine Not Detected (Not Detect); Barbiturates, Urine Not Detected (Not Detect); Benzodiazepines Screen Urine Not Detected (Not Detect); Buprenorphine Scr Not Detected (Not Detect); Cannabinoid Screen Urine Not Detected (Not Detect); Cocaine Screen Urine Not Detected (Not Detect); Fentanyl, urine Not Detected (Not Detect); Methadone Screen, Urine Not Detected (Not Detect); Opiate Screen Urine Not Detected (Not Detect); Oxycodone Screen Urine Not Detected (Not Detect); Phencyclidine Screen Urine Not Detected (Not Detect)
--- NOTE | 2024-05-07 23:10 | PC.NURSE ---
pt ambulated to and from bathroom with steady gait to collect urine sample. given augmentin po as ordered for colitis. pt back in bed, resting comfortably, denies current pain or distress. 1:1 sitter at bedside. care team eval pending.
[2024-05-08 01:37] VITALS: BP 102/67; PULSE 96; RESP 16; TEMP 37.3; O2SAT 98
--- NOTE | 2024-05-08 05:48 | PC.NURSE ---
pt remains calm, cooperative, sleeping on stretcher in no apparent distress. resp even and unlabored. 1:1 sitter at bedside. plan for patient to be evaluated by care team this AM.
[2024-05-08] MEDS: Amoxicillin/Potassium Clav 875 MG TABLET PO (09:46)
--- NOTE | 2024-05-08 09:52 | ECG_ITS ---
Test Reason : prolonged Blood Pressure : */* mmHG Vent. Rate : 92 BPM Atrial Rate : 92 BPM P-R Int : 140 ms QRS Dur : 80 ms QT Int : 374 ms P-R-T Axes : 21 75 52 degrees QTcB Int : 462 ms Normal sinus rhythm Normal ECG No previous ECGs available Referred By: Nieves Molina Electronically Signed By: LULU SINHA
[2024-05-08 12:46] VITALS: BP 117/70; PULSE 90; RESP 18; TEMP 36.7; O2SAT 99
--- NOTE | 2024-05-08 12:46 | PC.NURSE ---
Patient moved into Room 5. Quiet speaking. A+O x3 and cooperative. Patient admits to drink a few Boozy balls yesterday because she was feeling overwhelmed with some life issues. She claims she usually does not consume ETOH on a regular basis. Denies SI/HI at this time. IV removed.
[2024-05-08] MEDS: Ondansetron ODT 4 MG TAB.RAPDIS TRANSLINGU (14:09)
[2024-05-08 14:48] VITALS: BP 117/70; PULSE 90; RESP 18; TEMP 36.7; O2SAT 99
--- NOTE | 2024-05-09 07:35 | MHC.CARE ---
Patient has been referred by the CARE Team to [facility] & [facility], both referrals were generated and emailed. Follow up will be made to ensure that it was received.
== END 2024-05-08 14:49 | disposition home or self-care (01) ==
PROVIDERS: Physician Assistant; Emergency Provider Emergency Medicine
DX: F10.129 Alcohol abuse with intoxication, unspecified (principal); R45.851 Suicidal ideations; K52.9 Noninfective gastroenteritis and colitis, unspecified; K59.00 Constipation, unspecified; Y90.8 Blood alcohol level of 240 mg/100 ml or more; M79.10 Myalgia, unspecified site; R10.9 Unspecified abdominal pain; R51.9 Headache, unspecified; Z73.3 Stress, not elsewhere classified; Z51.81 Encounter for therapeutic drug level monitoring; Z03.818 Encounter for observation for suspected exposure to other biological agents ruled out; Z79.899 Other long term (current) drug therapy
CPT/HCPCS: 0241U; 36415; 70450; 74177; 80053; 80307; 81003; 81025; 83540; 84702; 85025; 93005; 99285; Q9967; S9485

== ENCOUNTER → 2024-05-07 16:13 | Outpatient (BNV) | payer OTHER, SELFPAY | PROVIDERS: Emergency Provider Emergency Medicine; Visit Provider Radiology Diagnostic Radiology | DX: R10.9 Unspecified abdominal pain (principal); R19.7 Diarrhea, unspecified; R51.9 Headache, unspecified; K59.00 Constipation, unspecified | CPT/HCPCS: 70450; 74177 ==

== ENCOUNTER → 2024-05-08 09:52 | Outpatient (BNV) | payer OTHER, SELFPAY | PROVIDERS: Emergency Provider Emergency Medicine; Visit Provider Internal Medicine | DX: Z13.6 Encounter for screening for cardiovascular disorders (principal) | CPT/HCPCS: 93010 ==

== ENCOUNTER 2024-06-08 09:51 | Outpatient (RCR) | payer OTHER, SELFPAY ==
--- NOTE | 2024-06-09 14:27 | HO.PHP ---
This blurb writer met with the patient on 06/08/2024 for the purpose of completing an intake assessment for [facility]. The patient was referred to [facility] by the [facility]. The patient was seen at the ED on 05/08/2024. Per CARE team assessment, Pt self-presented to the ED with her 10 year old son, with a complaint of alcohol intoxication,she reports consuming two buzz balls of liquor today. Denies regular etoh consumption. She reported abdominal discomfort, body aches, and mental pain associated with life stresses. Pt reported she was angry, depressed, and wishes to harm herself stating I could never do that to my son . She denied plan and intent. Pt has no hx of dx of mental illness, inpt hospitalizations, substance use, substance use tx, SI, and attempts. During the intake assessment,we discussed this incident,the patient stated that she and her son attended a libertarian,she stated she was not aware that she drank alcohol. We discussed [facility],this blurb writer explained the treatment that she will be receiving, the patient informed this blurb writer that she does not know the reason she is at [facility] and that she does not think she needs [facility] level of care. The patient does not have outpatient providers currently however,she stated that she has an appt scheduled through [facility] for a therapist. The patient was not in crisis,she [facility] with her son.This blurb writer provided the patient with resource information. Caroline Burton,[facility] Behavioral Health Specialist III
== END 2024-06-08 09:56 | disposition home or self-care (01) ==
LOC: HO.PHPA 09:51
PROVIDERS: Visit Provider Psychiatry & Neurology Psychiatry
DX: F32.A Depression, unspecified (principal)